=== PATIENT | female | born 1950 | race Caucasian/White ===

== ENCOUNTER → 2019-06-05 | Outpatient (CLI) | payer BC, MEDICARE ==
[2019-06-05 11:44] LABS: Basophils # (A) 0.1 k/uL (0-0.2); Basophils % (A) 1 %; Eosinophils # (A) 0.1 k/uL (0-0.7); Eosinophils % (A) 2 %; Lymphocytes # (A) 2.1 k/uL (1.0-4.8); Lymphocytes % (A) 33 %; MCH 30.6 pg (25.0-35.0); MCHC 34.3 g/dL (31.0-37.0); MCV 89.1 fL (80.0-100.0); Mean Platelet Volume 6.9; Monocytes # (A) 0.3 k/uL (0-1.0); Monocytes % (A) 4 %; Neutrophils # (A) 3.7 k/uL (1.3-7.7); Neutrophils % (A) 58 %; Platelet Count 546 k/uL (150-450); RBC 3.92 m/uL (3.80-5.40); RDW 12.6 % (11.5-15.5); WBC 6.4 k/uL (3.8-10.6)
[2019-06-05 12:40] LABS: Calcium 11.4 mg/dL (8.4-10.2); Potassium 4.8 mmol/L (3.5-5.1)
== END | disposition home or self-care (01) ==
LOC: LABPAT 10:50
PROVIDERS: ATTEND Urology
DX: Z01.812 Encounter for preprocedural laboratory examination (principal); N18.3 Chronic kidney disease, stage 3 (moderate); K62.3 Rectal prolapse; N81.10 Cystocele, unspecified
CPT/HCPCS: 36415; 80048; 85025

== ENCOUNTER 2019-06-13 09:32 | Day surgery (SDC) | payer MEDICARE, BC ==
--- NOTE | 2019-06-09 16:55 | P.GSHP ---
History of Present Illness H&P Date: 06/09/19 Chief Complaint: Pelvic prolapse The patient is a 68-year-old white female who underwent a TVH in 2004. She now presents with pelvic prolapse. She also reports mild stress urinary incontinence with sneezing, which does not require the use of pads. - Constitutional Constitutional: Reports daytime sleepiness, Denies chills, Denies fever - Cardiovascular Cardiovascular: Denies chest pain - Respiratory Respiratory: Denies dyspnea - Genitourinary (Female) Genitourinary: Reports prolapse symptoms, Reports stress incontinence Surgical - Exam - General well developed, well nourished, no distress - Neck no masses, trachea midline - Respiratory normal respiratory effort - Abdomen Abdomen: soft, non tender, no guarding, no rigid, no rebound - Genitourinary normal external genitalia, perineal/vulvar lesions, other (Grade 3 enterocele, grade 1 cystocele) - Psychiatric oriented to time, oriented to person, oriented to place, speech is normal, memory intact Assessment and Plan (1) Enterocele Status: Acute Code(s): K46.9 - UNSPECIFIED ABDOMINAL HERNIA WITHOUT OBSTRUCTION OR GANGRENE SNOMED Code(s): 621690165 Plan: Robotic-assisted laparoscopic sacrocolpopexy with mesh insertion, to be performed by Dr. Jean. He has reviewed the procedure with her in detail. Potential risks include anesthesia, bleeding, infection, neurovascular injury, bowel injury, post-op urinary retention, and recurrent prolapse.
[2019-06-12 08:51] VITALS: BMI 30.2
[~2019-06-13 09:32] MED LIST: DEXAMETHASONE SOD PHOSPHATE 10 MG/ML 1 ML VIAL IV ONE; HYDROmorphone 0.5 MG/0.5 ML SYRINGE IVP PRN; LIDOCAINE 1% 20 ML VIAL (10MG/ML) FOR IV START INTRADERMA PRN; MIDAZOLAM 2 MG/2 ML VIAL IV PRN; ONDANSETRON 4 MG/2 ML VIAL IVP ONE; SCOPOLAMINE 1.5MG/72HR PATCH TRANSDERM ONE
[2019-06-13] MEDS: LACTATED RINGERS 1,000 ML IV SCH (10:35)
[2019-06-13] MEDS ORDERED: MIDAZOLAM 2 MG/2 ML VIAL ONE (11:41)
[2019-06-13] MEDS ORDERED: GLYCOPYRROLATE 0.2 MG/ML 2 ML VIAL ONE (11:41)
[2019-06-13] MEDS ORDERED: HYDROmorphone (PF) 1 MG/ML ONE (11:41)
[2019-06-13] MEDS ORDERED: SUCCINYLCHOLINE CHLORIDE 100 MG/5 ML SYR IV ONE (11:41)
[2019-06-13] MEDS ORDERED: PHENYLEPHRINE-0.9% NACL SYG 1 MG/10 ML SYRINGE ONE (11:41)
[2019-06-13] MEDS ORDERED: PROPOFOL 10 MG/ML 20 ML VIAL IV ONE (11:41)
[2019-06-13] MEDS ORDERED: NEOSTIGMINE 1 MG/ML 10 ML VIAL ONE (11:41)
[2019-06-13] MEDS ORDERED: LIDOCAINE 1% INJ 10MG/ML (20 ML MDV) ONE (11:41)
[2019-06-13] MEDS ORDERED: ePHEDrine SULFATE/0.9% NACL/PF 50 MG/5 ML SYRINGE IV ONE (11:41)
[2019-06-13] MEDS ORDERED: ROCURONIUM BROMIDE 10 MG/ML 10 ML VIAL IV ONE (11:41)
[2019-06-13] MEDS ORDERED: fentaNYL (PF) 50 MCG/ML 2 ML AMP ONE (11:41)
[2019-06-13] MEDS ORDERED: BUPIVACAINE (PF) 0.25% 30 ML VIAL SQ ONE ×3 (12:26)
[2019-06-13] MEDS ORDERED: LACTATED RINGERS 1,000 ML IV ONE (13:10)
--- NOTE | 2019-06-13 13:57 | P.OP ---
Date of Procedure: 06/13/19 Preoperative Diagnosis: pelvic organ prolapse, cystocele, rectocele Postoperative Diagnosis: same Procedure(s) Performed: Robotic sacrocolpopexy Implants: Y mesh Anesthesia: TOMASZ Surgeon: Pablo Jean Estimated Blood Loss (ml): 20 IV fluids (ml): 1,100 Urine output (ml): 100 Pathology: none sent Condition: stable Disposition: PACU Indications for Procedure: pelvic organ prolapse with cystocele and rectocele Operative Findings: Well defined planes between bladder and vagina and vagina and rectum. Description of Procedure: Aleja Bermeo came to the office with diagnosis of pelvic organ prolapse with cystocele and rectocele. She was recommended to undergo a robotic sacral colpopexy. All risks and complications were explained to her including bladder injury vesicovaginal fistula rectal injury and bleeding. She was taken to the OR and administered general anesthesia and placed in lithotomy position. A Veress needle was used to gain access to the peritoneum and the abdomen was insufflated to 20 mmHg. A 8 mm camera port was placed supraumbilically and additional 8 mm working ports were placed on the right and left side of the umbilicus. A 12 mm nursing assistant port was placed in the right flank. The robot was docked. Inspection of the abdomen showed minimal adhesions between the sigmoid and the bladder. A 29 size metal sizer was placed in the vagina by the nursing assistant and the vagina was pushed superiorly. Using the monopolar scissors and fenestrated bipolar a plane was developed between the vagina and the bladder anteriorly. The plane was carried laterally to the lateral border of the vagina and distally to the base of the bladder. Hemostasis was achieved with bipolar. Care was taken not to enter the entered the bladder. Attention was then directed to the posterior surface of the vagina. The sizer was pushed in and anteriorly to visualize the posterior surface of the vagina. Dissection was performed between the vagina and the rectum and the posterior dissection was carried all the way to the perineal body. Hemostasis was again achieved with bipolar. Attention was then directed to the sacral promontory. The peritoneum over the sacral promontory was excised and the fat was cleared over the surface of the bone for sufficient distance to permit placement of 4 sutures. Small veins were coagulated with the bipolar. Using the scissor and bipolar a tunnel was created from the sacral promontory all the way down to the vaginal incision. The white mesh was then introduced into the abdomen and placed over the vagina. The anterior sutures were placed first using 2-0 Ethibond on an SH 1 needle. 3 rows of [address] on the anterior vaginal wall taking care not to penetrate the full-thickness of the vagina. Attention was then directed to the posterior vaginal wall and 2 rows of 2 sutures each using the same 2-0 Ethibond were placed. The limb of the mesh was placed through the tunnel and brought up to the sacral promontory. The nursing assistant was asked to use the sizer and place cephalic traction on the vagina. With the vagina on traction sutures were placed between the mesh and the periosteum off the sacral promontory. 2-0 Ethibond on an SH needle was used to place 2 rows of 2 sutures each. The nursing assistant was then asked to release traction on the vagina and adequate fixation of the vagina to the sacral promontory was confirmed. Hemostasis was confirmed and a 2-0 V-loc suture on an SH 1 needle was used to close the peritoneal incision so as to completely extraperitoneal The mesh. The vaginal examination was performed to confirm that the cystocele and rectocele were no longer present and that there was no pelvic organ prolapse. the ports were removed and the incisions were closed with 3-0 Monocryl. The patient was taken to recovery in stable condition
[2019-06-13] MEDS ORDERED: HYDROmorphone 1 MG/ML 1 ML SYRINGE IVP PRN (14:25)
[2019-06-13] MEDS ORDERED: ACETAMINOPHEN TAB 325 MG TAB PO PRN (14:25)
[2019-06-13] MEDS: DEXTROSE 5%-0.45% NACL 1,000 ML IV SCH ×2 (15:57→23:52)
[2019-06-13] MEDS: KETOROLAC 30 MG/ML 1 ML VIAL IVP SCH ×2 (17:17→23:50)
[2019-06-14] MEDS: LACTATED RINGERS 1,000 ML IV SCH (04:59)
[2019-06-14] MEDS: KETOROLAC 30 MG/ML 1 ML VIAL IVP SCH ×2 (05:30→11:54)
[2019-06-14 08:03] VITALS: RESP 12
[2019-06-14] MEDS: DEXTROSE 5%-0.45% NACL 1,000 ML IV SCH (11:32)
[2019-06-14 15:11] VITALS: BP 112/74; PULSE 59; TEMP 97.5
--- NOTE | 2019-06-14 15:19 | P.DS ---
Providers Expected date of discharge: 06/14/19 Attending physician: Pablo Jean Primary care physician: Casey Stewart - Discharge Diagnosis(es) (1) Enterocele Current Visit: No Status: Acute Hospital Course: On the day of admission, the patient underwent an uncomplicated robotic sacrocolpopexy. Perioperative course was uncomplicated as well. She remained afebrile with stable vital signs. On the first postoperative day, the abdomen was soft and the incisions were clean and dry. The Alvarado catheter and vaginal packing were removed, and she was subsequently able to void 500 mL without difficulty. She reported mild incisional and pelvic discomfort which was controlled with analgesics. Procedures: Robotic sacrocolpopexy Patient Condition at Discharge: Good Plan - Discharge Summary Discharge Rx Participant: Yes New Discharge Prescriptions: New Cephalexin [Keflex] 500 mg PO Q8HR #15 cap Hydrocodone/Acetaminophen [[place] 5-325] 1 - 2 each PO Q4HR PRN #10 tab PRN Reason: Pain No Action Lisinopril-Hctz 20-12.5 mg [Zestoretic 20-12.5] 1 tab PO BID Hydrochlorothiazide [Hydrodiuril] 12.5 mg PO DAILY Gemfibrozil [Lopid] 600 mg PO AC-BID Red Yeast Rice 600 mg PO DAILY [place]-3 Fatty Acids/Fish Oil [Fish Oil 1,000 mg Softgel] 1 each PO BID Multivit-Min/Iron/Folic/Lutein [Centrum Silver Women Tablet] 1 each PO DAILY Magnesium 400 mg PO DAILY Calcium 600 With D & Minerals 1 tab PO DAILY Discharge Medication List Calcium 600 With D & Minerals 1 tab PO DAILY 06/12/19 [History] Gemfibrozil [Lopid] 600 mg PO AC-BID 06/12/19 [History] Hydrochlorothiazide [Hydrodiuril] 12.5 mg PO DAILY 06/12/19 [History] Lisinopril-Hctz 20-12.5 mg [Zestoretic 20-12.5] 1 tab PO BID 06/12/19 [History] Magnesium 400 mg PO DAILY 06/12/19 [History] Multivit-Min/Iron/Folic/Lutein [Centrum Silver Women Tablet] 1 each PO DAILY 06/12/19 [History] [place]-3 Fatty Acids/Fish Oil [Fish Oil 1,000 mg Softgel] 1 each PO BID 06/12/19 [History] Red Yeast Rice 600 mg PO DAILY 06/12/19 [History] Cephalexin [Keflex] 500 mg PO Q8HR #15 cap 06/14/19 [Rx] Hydrocodone/Acetaminophen [[place] 5-325] 1 - 2 each PO Q4HR PRN #10 tab 06/14/19 [Rx] Follow up Appointment(s)/Referral(s): Martin Aponte MD [STAFF PHYSICIAN] - 1 Week Activity/Diet/Wound Care/Special Instructions: OK to shower. Diet as tolerated. No lifting or strenuous activity. Discharge Disposition: HOME SELF-CARE
== END 2019-06-14 16:35 | disposition home or self-care (01) ==
LOC: OR 09:32 → 4SSUR 14:51 → OR 06-14 16:35
PROVIDERS: ATTEND Urology
DX: N99.3 Prolapse of vaginal vault after hysterectomy (principal); I10 Essential (primary) hypertension; E66.9 Obesity, unspecified; M15.9 Polyosteoarthritis, unspecified; E03.9 Hypothyroidism, unspecified; E78.5 Hyperlipidemia, unspecified; Z68.30 Body mass index [BMI] 30.0-30.9, adult; Z79.899 Other long term (current) drug therapy; Z88.8 Allergy status to other drugs, medicaments and biological substances; Z90.49 Acquired absence of other specified parts of digestive tract; Z98.51 Tubal ligation status; Z87.19 Personal history of other diseases of the digestive system; Z90.710 Acquired absence of both cervix and uterus; Z82.49 Family history of ischemic heart disease and other diseases of the circulatory system; Z83.3 Family history of diabetes mellitus
CPT/HCPCS: 57425; J2250; J1100; J2710; J0690 ×2; J2405; J2001; J3010; J1885 ×2; J1170 ×2; J2370; J0330; J2704; 86850; 86900; 86901

== ENCOUNTER 2023-07-30 00:16 | Emergency (ER) | payer MEDICARE, BC ==
[2023-07-30] MEDS ORDERED: MORPHINE SULFATE 4 MG/ML SYRINGE IM STA (00:51)
[2023-07-30 00:52] VITALS: TEMP 98
--- NOTE | 2023-07-30 01:51 | ED ---
Extremity Problem HPI - General Chief complaint: Extremity Problem,Nontraumatic Stated complaint: Fluid on left knee Time Seen by Provider: 07/30/23 00:33 Source: patient Mode of arrival: wheelchair Limitations: no limitations - History of Present Illness Initial comments: 72-year-old female with past medical history significant for chronic pain of the left knee presenting to the ED with a chief complaint of knee pain. Patient reports approximately 2 weeks ago received a cortisone injection by Dr. Tang to her left knee. States earlier this week started to develop some pain and swelling of her left knee and presented again to Dr. Tang. States she had drainage performed of her knee and reported that the fluid in her knee. Suspicious for infection. Due to this, she was provided prescription for Augmentin on 07/28/2023 which patient states she has been taking as instructed. Despite this, reports some worsening of pain to her left knee prompting presentation to the ED for further evaluation. Patient states that she has another procedure scheduled with Dr. Tang tomorrow for this. Denies fever or chills. Denies increasing redness or swelling of the knee. No other complaints at this time. - Related Data Home Medications Medication Instructions Recorded Confirmed Calcium 600 With D & Minerals 1 tab PO DAILY 06/12/19 06/13/19 Lisinopril-Hctz 20-12.5 mg 1 tab PO BID 06/12/19 06/13/19 [Zestoretic 20-12.5] Magnesium 400 mg PO DAILY 06/12/19 06/13/19 Multivit-Min/Iron/Folic/Lutein 1 each PO DAILY 06/12/19 06/13/19 [Centrum Silver Women Tablet] [place]-3 Fatty Acids/Fish Oil [Fish 1 each PO BID 06/12/19 06/13/19 Oil 1,000 mg Softgel] Red Yeast Rice 600 mg PO DAILY 06/12/19 06/13/19 gemfibroziL [Lopid] 600 mg PO AC-BID 06/12/19 06/13/19 hydroCHLOROthiazide [Hydrodiuril] 12.5 mg PO DAILY 06/12/19 06/13/19 Previous Rx's Medication Instructions Recorded Cephalexin [Keflex] 500 mg PO Q8HR #15 cap 06/14/19 Hydrocodone/Acetaminophen [[place] 1 - 2 each PO Q4HR PRN #10 tab 06/14/19 2-591] Allergies Allergy/AdvReac Type Severity Reaction Status Date / Time lovastatin Allergy Unknown listed on Verified 07/30/23 00:28 surgery boarding slip Review of Systems ROS Statement: Those systems with pertinent positive or pertinent negative responses have been documented in the HPI. ROS Other: All systems not noted in ROS Statement are negative. Past Medical History Past Medical History: Hyperlipidemia, Hypertension History of Any Multi-Drug Resistant Organisms: None Reported Past Surgical History: No Surgical Hx Reported Past Psychological History: No Psychological Hx Reported Smoking Status: Never smoker Past Alcohol Use History: None Reported Past Drug Use History: None Reported General Exam Limitations: no limitations General appearance: alert, in no apparent distress Eye exam: Present: normal appearance Neck exam: Present: normal inspection Respiratory exam: Present: normal lung sounds bilaterally Cardiovascular Exam: Present: regular rate, normal rhythm GI/Abdominal exam: Present: soft Extremities exam: Present: other (Left lower extremity shows DP/PT pulses intact. Surrounding the knee there is soft tissue swelling with some warmth however no significant erythema. This is tender to palpation. Patient able to passively flex and extend the knee without pain out of proportion.) Neurological exam: Present: alert, oriented X3 Skin exam: Present: warm, dry Course Vital Signs 07/30/23 00:25 Temperature 98 F Pulse Rate 103 H Respiratory 20 Rate Blood Pressure 163/97 O2 Sat by Pulse 99 Oximetry Medical Decision Making - Medical Decision Making Was pt. sent in by a medical professional or institution (Dr. PA, [facility]ACHINIST, urgent care, hospital, or [facility]...) When possible be specific @ -No Did you speak to anyone other than the patient for history (EMS, parent, family, police, friend...)? What history was obtained from this source @ -No Did you review nursing and triage notes (agree or disagree)? Why? @ -I reviewed and agree with nursing and triage notes Were old charts reviewed (outside hosp., previous admission, EMS record, old EKG, old radiological studies, urgent care reports/EKG's, [facility] records)? Report findings @ -No old charts were reviewed Differential Diagnosis (chest pain, altered mental status, abdominal pain women, abdominal pain men, vaginal bleeding, weakness, fever, dyspnea, syncope, headache, dizziness, GI bleed, back pain, seizure, CVA, palpatations, mental health, musculoskeletal)? @ -Differential Musculoskeletal Muscular strain, contusion, ligament sprain, fracture, arthritis, septic arthritis, bursitis, cellulitis, muscle spasm, nerve compression, DVT, arterial occlusion, herpes zoster, electrolyte abnormality, tumor.... This is not meant to be in all inclusive list EKG interpreted by me (3pts min.). @ -None X-rays interpreted by me (1pt min.). @ -None done CT interpreted by me (1pt min.). @ -None done U/S interpreted by me (1pt. min.). @ -None done What testing was considered but not performed or refused? (CT, X-rays, U/S, labs)? Why? @ -None What meds were considered but not given or refused? Why? @ -None Did you discuss the management of the patient with other professionals (professionals i.e. , PA, [employer] MACHINIST, lab, RT, psych nurse, high school social studies tutor, detective investigator, teacher, police patrol officer, special education case manager)? Give summary @ -No Was smoking cessation discussed for >3mins.? @ -No Was critical care preformed (if so, how long)? @ -No Were there social determinants of health that impacted care today? How? (Homelessness, low income, unemployed, alcoholism, drug addiction, transportation, low edu. Level, literacy, decrease access to med. care, custodial, rehab)? @ -No Was there de-escalation of care discussed even if they declined (Discuss DNR or withdrawal of care, Hospice)? DNR status @ -No What co-morbidities impacted this encounter? (DM, HTN, Smoking, COPD, CAD, Cancer, CVA, ARF, Chemo, Hep., AIDS, mental health diagnosis, sleep apnea, morbid obesity)? @ -None Was patient admitted / discharged? Hospital course, mention meds given and route, prescriptions, significant lab abnormalities, going to OR and other pertinent info. @ -Discharge 72-year-old female presenting to the ED with presumed left knee infection status post cortisone injection approximately 2 weeks ago. Patient is already on antibiotics. At this time vital signs are stable, afebrile. Exam showed no pain out of proportion to passive flexion and extension of the knee. No significant erythema surrounding the knee. Patient had significant improvement of pain here in the ED. Provided prescription for [place] and advised to continue taking antibiotics as prescribed. Discussed strict return precautions with patient who verbalized agreement otherwise patient is to follow-up with her orthopedist as scheduled tomorrow. Undiagnosed new problem with uncertain prognosis? @ -No Drug Therapy requiring intensive monitoring for toxicity (Heparin, Nitro, Insulin, Cardizem)? @ -No Were any procedures done? @ -No Diagnosis/symptom? @ -Left knee pain Acute, or Chronic, or Acute on Chronic? @ -Acute Uncomplicated (without systemic symptoms) or Complicated (systemic symptoms)? @ -Uncomplicated Side effects of treatment? @ -No Exacerbation, Progression, or Severe Exacerbation? @ -No Poses a threat to life or bodily function? How? (Chest pain, [place], [place], pneumonia, PE, COPD, DKA, ARF, appy, cholecystitis, CVA, Diverticulitis, Homicidal, Suicida l, threat to staff... and all critical care pts) @ -No Disposition Clinical Impression: Infection of left knee Disposition: HOME SELF-CARE Condition: Good Additional Instructions: Please return to the Emergency Department if symptoms worsen or any other concerns. Please monitor for signs of worsening infection and return to the ED promptly if any of those signs arise. Continue taking antibiotics as prescribed. Follow-up as scheduled with Dr. Tang tomorrow. Is patient prescribed a controlled substance at d/c from ED?: Yes When asked, does pt state using other controlled substances?: Yes If prescribed controlled substance>3 days was MAPS reviewed?: Prescribed <3 Days If opioid is for acute pain is fill amount 7 days or less?: Yes If Rx opioid, was Start Talking consent form obtained?: Yes Referrals: Kel Tang MD [Primary Care Provider] - 1-2 days Time of Disposition: 01:56
[2023-07-30] MEDS ORDERED: MORPHINE SULFATE 2 MG/ML SYRINGE IM ONE (02:01)
[2023-07-30 02:58] VITALS: BP 132/82; PULSE 91; RESP 16
== END 2023-07-30 02:38 | disposition home or self-care (01) ==
LOC: EC 00:16
DX: M00.9 Pyogenic arthritis, unspecified (principal); I10 Essential (primary) hypertension; Z88.8 Allergy status to other drugs, medicaments and biological substances; Z79.899 Other long term (current) drug therapy
CPT/HCPCS: 99283; 96372 ×2; J2270 ×2